=== PATIENT | male | born 1935 | race Caucasian/White ===

== ENCOUNTER 2016-09-05 11:07 | Emergency (ER) | payer OTHER, BC ==
[~2016-09-05] VITALS: Ht 175.3 cm; Wt 81.7 kg
[~2016-09-05 11:07] MED LIST: ALLERGY4 MG PO; Coumadin dosing per PO; Feosol PO; Imodium PO; KDUR PO; Osteo-Biflex,Flex-A- PO; Tums PO; Tylenol Regular Stre PO
[2016-09-05 12:13] LABS: EOSINOPHIL (%) 1.5 % (0-5); EOSINOPHIL COUNT 0.1 K/uL (0-0.3); HEMATOCRIT 40.8 % (38.0-50.0); IMMATURE GRANULOCYTE (%) 0.2 % (0.0-0.7); IMMATURE GRANULOCYTE COUNT 0.1 K/uL; LYMPHOCYTE COUNT 1.7 K/uL (1.0-2.8); MCH 32.7 PG (29.0-34.0); MCHC 34.6 G/DL (30.0-36.0); MCV 94.7 FL (86-99); MEAN PLAT.VOLUME 9.1 uM^3 (9.0-12.4); MONOCYTE (%) 8.4 % (3-12); MONOCYTE COUNT 0.5 K/uL (0-0.8); NEUTROPHIL (%) 58.1 % (45-76); NEUTROPHIL COUNT 3.1 K/uL (1.8-6.4); PLATELET COUNT 178 K/uL (156-360); RBC DIS.WIDTH-CV 12.3 % (11.8-14.6); RBC DIS.WIDTH-SD 41.3 % (39-53); RED BLOOD COUNT 4.31 M/uL (4.00-5.50); WHITE BLOOD COUNT 5.4 K/uL (4.1-10.2)
[2016-09-05 12:23] LABS: CHLORIDE 108 mEq/L (99-109); POTASSIUM 3.8 mEq/L (3.7-5.4)
[2016-09-05 12:24] LABS: SODIUM 142 mEq/L (136-147)
[2016-09-05 12:25] LABS: GLUCOSE 96 mg/dL (70-99)
[2016-09-05 12:27] LABS: ANION GAP 7 MEQ/L (2-14)
[2016-09-05 12:29] LABS: GFR ESTIMATE (CALCULATED) > 59 mL/min/
[2016-09-05 12:30] LABS: UREA NITROGEN (BUN) 13 mg/dL (9-23)
[2016-09-05 12:43] LABS: ADD MIUA? YES; BILIRUBIN NEGATIVE; BLOOD MODERATE; COLOR YELLOW ((YELLOW)); GLUCOSE (STRIP) NEGATIVE; KETONES NEGATIVE; LEUKOCYTES NEGATIVE; NITRITE NEGATIVE; PH, URINE 6.5 (5-8); PROTEIN (STRIP) NEGATIVE; SPECIFIC GRAVITY 1.008 (1.000-1.030); UROBILINOGEN 0.2 MG/DL (0.2-1.0)
[2016-09-05 13:01] LABS: EPITHELIAL CELLS NONE SEEN /HPF; MUCUS NONE SEEN /LPF; RED BLOOD CELLS RARE /HPF (0-5); WHITE BLOOD CELLS NONE SEEN /HPF (0-5)
[2016-09-05 13:03] LABS: BACTERIA RARE /HPF; CASTS NONE SEEN /LPF; CRYSTALS NONE SEEN
[2016-09-05] MEDS ORDERED: TYLENOL WITH C1 EACH PO (15:42)
[2016-09-05 15:46] VITALS: BP 126/72
== END 2016-09-05 16:16 | disposition home or self-care (01) ==
LOC: EME → EDBD 11:07 → EME 11:07
PROVIDERS: Emergency Medicine
DX: R10.12 Left upper quadrant pain (principal); Z96.649 Presence of unspecified artificial hip joint; Z88.6 Allergy status to analgesic agent; Z88.2 Allergy status to sulfonamides
CPT/HCPCS: 74177; 80048; 81003; 85025; 93005; 99281; 99285; J7030

== ENCOUNTER 2017-05-06 10:59 | Emergency (ER) | payer OTHER, BC ==
[~2017-05-06] VITALS: Ht 172.7 cm; Wt 76.1 kg
[~2017-05-06 10:59] MED LIST changes: +TYLENOL WITH C1 EACH PO
[2017-05-06 11:21] LABS: ADD MIUA? YES; BILIRUBIN NEGATIVE; BLOOD MODERATE; COLOR YELLOW ((YELLOW)); GLUCOSE (STRIP) NEGATIVE; KETONES 20; LEUKOCYTES NEGATIVE; NITRITE NEGATIVE; PROTEIN (STRIP) NEGATIVE; SPECIFIC GRAVITY 1.015 (1.000-1.030); UROBILINOGEN 0.2 MG/DL (0.2-1.0)
[2017-05-06 11:27] LABS: BACTERIA RARE /HPF; CALCIUM OXALATE CRYSTALS 1+ /HPF; EPITHELIAL CELLS NONE SEEN /HPF; MUCUS TRACE /LPF; UCUL ADDED? NO; WHITE BLOOD CELLS NONE SEEN /HPF (0-5)
[2017-05-06 11:56] LABS: HEMATOCRIT 42.4 % (38.0-50.0); MCH 32.5 PG (29.0-34.0); MCHC 34.4 G/DL (30.0-36.0); MCV 94.4 FL (86-99); MEAN PLAT.VOLUME 9.2 uM^3 (9.0-12.4); PLATELET COUNT 182 K/uL (156-360); RBC DIS.WIDTH-CV 11.9 % (11.8-14.6); RBC DIS.WIDTH-SD 41.4 % (39-53); RED BLOOD COUNT 4.49 M/uL (4.00-5.50); WHITE BLOOD COUNT 4.7 K/uL (4.1-10.2)
[2017-05-06 12:08] LABS: CHLORIDE 107 mEq/L (99-109); POTASSIUM 3.9 mEq/L (3.7-5.4); SODIUM 142 mEq/L (136-147)
[2017-05-06 12:10] LABS: GLUCOSE 94 mg/dL (70-99)
[2017-05-06 12:11] LABS: ANION GAP 9 MEQ/L (2-14)
[2017-05-06 12:12] LABS: TOTAL BILIRUBIN 0.9 mg/dL (0.0-1.0)
[2017-05-06 12:13] LABS: ALKALINE PHOSPHATASE 61 IU/L (3-129)
[2017-05-06 12:14] LABS: GFR ESTIMATE (CALCULATED) > 59 mL/min/
[2017-05-06 12:15] LABS: UREA NITROGEN (BUN) 12 mg/dL (9-23)
[2017-05-06 16:54] VITALS: BP 156/80
== END 2017-05-06 17:12 | disposition home or self-care (01) ==
LOC: EME 10:59
DX: R10.12 Left upper quadrant pain (principal); R10.32 Left lower quadrant pain; R31.29 Other microscopic hematuria; K59.00 Constipation, unspecified; N40.1 Benign prostatic hyperplasia with lower urinary tract symptoms; R39.15 Urgency of urination; K21.9 Gastro-esophageal reflux disease without esophagitis; Z96.641 Presence of right artificial hip joint; Z79.01 Long term (current) use of anticoagulants; Z87.891 Personal history of nicotine dependence
CPT/HCPCS: 74174; 80053; 81003; 85027; 99281; 99285; J7030

== ENCOUNTER 2017-11-27 16:30 | Emergency (ER) | payer OTHER, BC ==
[~2017-11-27] VITALS: Ht 172.7 cm; Wt 69.1 kg
[2017-11-27 20:36] VITALS: BP 124/73
== END 2017-11-27 20:36 | disposition home or self-care (01) ==
LOC: EME 16:30
DX: S09.90XA Unspecified injury of head, initial encounter (principal); S20.211A Contusion of right front wall of thorax, initial encounter; S60.511A Abrasion of right hand, initial encounter; S60.512A Abrasion of left hand, initial encounter; W18.30XA Fall on same level, unspecified, initial encounter; S80.211A Abrasion, right knee, initial encounter; Y92.481 Parking lot as the place of occurrence of the external cause; I71.4 Abdominal aortic aneurysm, without rupture; K21.9 Gastro-esophageal reflux disease without esophagitis; Z79.01 Long term (current) use of anticoagulants; Z87.891 Personal history of nicotine dependence; Z88.2 Allergy status to sulfonamides; Z88.6 Allergy status to analgesic agent; Z96.649 Presence of unspecified artificial hip joint
CPT/HCPCS: 71101; 99281; 99285